=== PATIENT | female | born 1945 | race Caucasian/White ===

== ENCOUNTER 2016-08-04 12:27 | Emergency (ER) | payer BC ==
--- NOTE | 2016-08-04 12:53 | Emergency Department Record ---
History of Present Illness - General Chief complaint: Eye Problem Stated complaint: FLOATERS IN RIGHT EYE Time Seen by Provider: 08/04/16 12:46 Source: Patient Mode of Arrival: Ambulatory Limitations: No limitations - History of Present Illness Initial comments: The patient is here due to noticing floaters in the R eye over the lateral eye field since last evening. She denies any eye pain or blurred vision. The patient has had issues like this in the past but not this bad. She does have an Optomotrist who is not in the office today and has been told she has the start of macular degeneration and a cataract in one or both of the eyes. chief complaint: Other Onset/Timin -: Days(s) Location: Right eye Place: Home If Injury: None Eye Symptoms: Other Consistency: Constant Context: Other Associated Symptoms: None Treatments Prior to Arrival: None - Related Data Home Medications Medication Instructions Recorded Confirmed Last Taken Amlodipine Besylate [Norvasc] 5 mg PO QHS 08/04/16 08/04/16 Unknown Estradiol [Estradiol] 1 patch TOP DAILY 08/04/16 08/04/16 Unknown Folic Acid [Folic Acid] 1 mg PO DAILY 08/04/16 08/04/16 Unknown Losartan/Hydrochlorothiazide 1 tab PO DAILY 08/04/16 08/04/16 Unknown [Losartan-Hctz 50-12.5 mg Tab] Meloxicam [Meloxicam] 15 mg PO DAILY 08/04/16 08/04/16 Unknown Methotrexate Sodium [Methotrexate] 30 mg PO WEEKLY 08/04/16 08/04/16 Unknown Allergies Allergy/AdvReac Type Severity Reaction Status Date / Time Tetracyclines Allergy HYPERSENSIT Verified 08/04/16 12:43 IV[facility] Travel Screening - Travel/Exposure Within Last 30 Days Have you traveled within the last 30 days?: No Review of Systems Constitutional: Denies: Chills, Fever Eyes: Denies: Eye discharge, Eye pain, Photophobia, Vision change ENT: Denies: Congestion Respiratory: Denies: Cough, Dyspnea Past Medical History - SOCIAL HISTORY Smoking Status: Never smoker Alcohol Use: None Drug Use: None - RESPIRATORY Hx Respiratory Disorders: No - CARDIOVASCULAR Hx Cardio Disorders: Yes Hx Hypertension: Yes - NEURO Hx Neuro Disorders: No - GI Hx GI Disorders: No - Hx Genitourinary Disorders: No - ENDOCRINE Hx Endocrine Disorders: No - MUSCULOSKELETAL Hx Musculoskeletal Disorders: Yes Hx Arthritis: Yes (RA) - PSYCH Hx Psych Problems: No - HEMATOLOGY/ONCOLOGY Hx Hematology/Oncology Disorders: No Family Medical History Any Significant Family History?: No Physical Exam - General General Appearance: Alert, Oriented x3, Cooperative, No acute distress - Head Head exam: Atraumatic, Normocephalic, Normal inspection - Eye Eye exam: Normal appearance, PERRL, EOMI. negative: Conjunctival injection Visual acuity (L) = 20/: 70 Visual acuity (R) = 20/: 70 With correction: Yes - ENT ENT exam: Normal exam, Mucous membranes moist, Normal external ear exam, Normal orophraynx, TM's normal bilaterally - Neck Neck exam: Normal inspection, Full ROM. negative: Lymphadenopathy, Meningismus , Tenderness Course Vital Signs 08/04/16 12:36 Temperature 98.1 F Pulse Rate 105 H Respiratory 18 Rate Blood Pressure 150/81 Pulse Ox 98 - Reevaluation(s) Reevaluation #1: Due to not having the proper equipment to handle this type of issue I did consult with Dr. White (Opthomology) and he is willing to see the patient in his office now. The patient will drive directly to his office in [place] for further eval. 08/04/16 13:19 Disposition Disposition: Transfer Clinical Impression: Floaters in visual field Qualifiers: Laterality: right Qualified Code(s): H43.391 - Other vitreous opacities, right eye Disposition: Acute Care Hospital Transfer Transfer To: Dr. White Reason For Transfer: Opthomology Accepting Physician: Collette Time Discussed w/Accepting Physician: 13:15 Condition: (2) Stable Instructions: Visual Floaters (ED) Additional Instructions: Please drive directly to Dr. White office in [place] for further eval. Referrals: PAOLA WHITE [MEDICAL DOCTOR] - Forms: Patient Portal Access Time of Disposition: 13:16
--- NOTE | 2016-08-04 14:19 | Emergency Department Record ---
History of Present Illness - General Chief complaint: Eye Problem Stated complaint: FLOATERS IN RIGHT EYE Time Seen by Provider: 08/04/16 12:46 Source: Patient Mode of Arrival: Ambulatory Limitations: No limitations - History of Present Illness chief complaint: Other Onset/Timin -: Days(s) Location: Right eye Place: Home If Injury: None Eye Symptoms: Other Consistency: Constant Context: Other Associated Symptoms: None Treatments Prior to Arrival: None - Related Data Visual acuity (L) = 20/: 70 Visual acuity (R) = 20/: 70 With correction: Yes Home Medications Medication Instructions Recorded Confirmed Last Taken Amlodipine Besylate [Norvasc] 5 mg PO QHS 08/04/16 08/04/16 Unknown Estradiol [Estradiol] 1 patch TOP DAILY 08/04/16 08/04/16 Unknown Folic Acid [Folic Acid] 1 mg PO DAILY 08/04/16 08/04/16 Unknown Losartan/Hydrochlorothiazide 1 tab PO DAILY 08/04/16 08/04/16 Unknown [Losartan-Hctz 50-12.5 mg Tab] Meloxicam [Meloxicam] 15 mg PO DAILY 08/04/16 08/04/16 Unknown Methotrexate Sodium [Methotrexate] 30 mg PO WEEKLY 08/04/16 08/04/16 Unknown Allergies Allergy/AdvReac Type Severity Reaction Status Date / Time Tetracyclines Allergy HYPERSENSIT Verified 08/04/16 12:43 IV[facility] Travel Screening - Travel/Exposure Within Last 30 Days Have you traveled within the last 30 days?: No Review of Systems Constitutional: Denies: Chills, Fever Eyes: Denies: Eye discharge, Eye pain, Photophobia, Vision change ENT: Denies: Congestion Respiratory: Denies: Cough, Dyspnea Past Medical History - SOCIAL HISTORY Smoking Status: Never smoker Alcohol Use: None Drug Use: None - RESPIRATORY Hx Respiratory Disorders: No - CARDIOVASCULAR Hx Cardio Disorders: Yes Hx Hypertension: Yes - NEURO Hx Neuro Disorders: No - GI Hx GI Disorders: No - Hx Genitourinary Disorders: No - ENDOCRINE Hx Endocrine Disorders: No - MUSCULOSKELETAL Hx Musculoskeletal Disorders: Yes Hx Arthritis: Yes (RA) - PSYCH Hx Psych Problems: No - HEMATOLOGY/ONCOLOGY Hx Hematology/Oncology Disorders: No Family Medical History Any Significant Family History?: No Physical Exam - General Limitations: No limitations - Eye With correction: Yes - Respiratory Respiratory exam: Normal lung sounds bilaterally. negative: Respiratory distress - Cardiovascular Cardiovascular Exam: Regular rate, Normal rhythm, Normal heart sounds - Back Back exam: Reports: Normal inspection - Neurological Neurological exam: Alert, Normal gait, Oriented X3. negative: Abnormal gait, Altered, Motor sensory deficit - Psychiatric Psychiatric exam: negative: Agitated, Anxious, Depressed Course Vital Signs 08/04/16 12:36 Temperature 98.1 F Pulse Rate 105 H Respiratory 18 Rate Blood Pressure 150/81 Pulse Ox 98 Disposition Clinical Impression: Floaters in visual field Qualifiers: Laterality: right Qualified Code(s): H43.391 - Other vitreous opacities, right eye Disposition: Acute Care Hospital Transfer Condition: (2) Stable Instructions: Visual Floaters (ED) Additional Instructions: Please drive directly to Dr. White office in [place] for further eval. Referrals: PAOLA WHITE [MEDICAL DOCTOR] - Forms: Patient Portal Access
== END 2016-08-04 13:30 | disposition short-term general hospital (02) ==
LOC: ER 12:27
DX: H43.391 Other vitreous opacities, right eye (principal)
CPT/HCPCS: 99283